=== PATIENT | female | born 1965 | race African-American/Black ===

== ENCOUNTER 2017-05-15 21:31 | Emergency (ER) | payer MEDICAID, OTHER ==
[~2017-05-15] VITALS: Ht 170.2 cm; Wt 65.0 kg
[~2017-05-15 21:31] MED LIST: ARIP15TA2 PO; ASPI-1159 PO; ATEN-42 PO; CARB200T PO; PHEN100C12 PO; PHEN60TA PO; SIMV40TA5 PO; TRAZ-129 PO
[2017-05-15] MEDS ORDERED: SODIUM CHLORIDE 0.9% 1,000 ML IV ONE (22:28)
[2017-05-15 23:33] LABS: EOSINOPHILS % 1.6 % (0.0-5.0); HEMATOCRIT. 34.7 % (36.0-48.0); HEMOGLOBIN. 11.3 g/dL (12.0-16.0); LYMPHOCYTES % 48.8 % (20.0-50.0); MEAN CORPUSCULAR HEMOGLOBIN 27.8 pg (28.0-32.0); MEAN CORPUSCULAR VOLUME 85.2 fL (81.0-99.0); MEAN PLATELET VOLUME 9.6 fl (7.4-10.4); MONOCYTES % 7.5 % (2.0-8.0); NEUTROPHILS % 41.1 % (40.0-76.0); PLATELET 249 x1000/uL (130-400); RED BLOOD CELL COUNT 4.08 mill/uL (4.2-5.4); RED CELL DISTRIBUTION WIDTH 14.9 % (11.6-14.6)
[2017-05-15 23:35] LABS: CHLORIDE 105 mEq/L (98-107)
[2017-05-15 23:39] LABS: PROTHROMBIN TIME 10.7 sec (9.4-11.6)
[2017-05-15 23:43] LABS: AMMONIA 50 uMol/L (<32)
[2017-05-15 23:44] LABS: CARBON DIOXIDE 26 mEq/L (21-32); ETHANOL BLOOD < 10 mg/dL
[2017-05-16] MEDS ORDERED: PHENYTOIN SODIUM 1,000 MG in SODIUM CHLORIDE 0.9% 100 ML IV ONE (01:45)
[2017-05-16] MEDS ORDERED: PHENYTOIN SODIUM 1,000 MG in SODIUM CHLORIDE 0.9% 250 ML IV SCH (03:00)
[2017-05-16 03:39] LABS: CLARITY URINE CLOUDY (CLEAR); COLOR URINE YELLOW (YELLOW); KETONES URINE TRACE (NEGATIVE); LEUKOCYTE ESTERASE URINE TRACE (NEGATIVE); NITRITE URINE NEGATIVE (NEGATIVE); OCCULT BLOOD URINE NEGATIVE (NEGATIVE); PROTEIN URINE 1+ (NEGATIVE); UROBILINOGEN URINE 0.2 E.U./dL (0.2-1.0)
[2017-05-16 04:03] LABS: *AMPHETAMINES SCREEN URINE NEGATIVE (NEGATIVE); *BARBITURATES SCREEN URINE PRESUMTIVE POSITIVE (NEGATIVE); *BENZODIAZEPINES SCREEN URINE NEGATIVE (NEGATIVE); *COCAINE SCREEN URINE NEGATIVE (NEGATIVE); CANNABINOID URINE SCREEN PRESUMTIVE POSITIVE (NEGATIVE); METHADONE URINE SCREEN NEGATIVE (NEGATIVE); OPIATES URINE SCREEN NEGATIVE (NEGATIVE); PHENCYCLIDINE URINE SCREEN NEGATIVE (NEGATIVE)
[2017-05-16 06:00] VITALS: BP 124/71
== END 2017-05-16 06:23 | disposition home or self-care (01) ==
LOC: ER 21:31
DX: R56.9 Unspecified convulsions (principal); R41.82 Altered mental status, unspecified; I10 Essential (primary) hypertension; Z79.82 Long term (current) use of aspirin; Z88.0 Allergy status to penicillin; Z91.013 Allergy to seafood; Z88.8 Allergy status to other drugs, medicaments and biological substances
CPT/HCPCS: 36415; 70450; 71045; 80053; 80185; 80305; 81001; 82140; 85025; 85610; 93005; 96361; 96365; 99285; G0482; J1165; Z7610; J7030; J7050

== ENCOUNTER 2017-07-15 19:08 | Emergency (ER) | payer MEDICAID, OTHER ==
[~2017-07-15] VITALS: Ht 172.7 cm; Wt 110.0 kg
[2017-07-15] MEDS ORDERED: ONDANSETRON HCL 4MG/2ML VIAL IV ONE (23:15)
[2017-07-15] MEDS ORDERED: SODIUM CHLORIDE 0.9% 1,000 ML IV ONE (23:15)
[2017-07-15] MEDS ORDERED: VALPROATE SODIUM 500 MG in DEXT 5% WATER 100 ML IV ONE (23:15)
[2017-07-15] MEDS ORDERED: PHENYTOIN SODIUM 500 MG in SODIUM CHLORIDE 0.9% 50 ML IV NR (23:30)
[2017-07-15 23:41] LABS: EOSINOPHILS % 1.8 % (0.0-5.0); HEMATOCRIT. 32.7 % (36.0-48.0); HEMOGLOBIN. 10.9 g/dL (12.0-16.0); LYMPHOCYTES % 49.5 % (20.0-50.0); MEAN CORPUSCULAR HEMOGLOBIN 28.9 pg (28.0-32.0); MEAN CORPUSCULAR VOLUME 86.6 fL (81.0-99.0); MEAN PLATELET VOLUME 8.7 fl (7.4-10.4); MONOCYTES % 7.5 % (2.0-8.0); NEUTROPHILS % 40.2 % (40.0-76.0); PLATELET 211 x1000/uL (130-400); RED BLOOD CELL COUNT 3.78 mill/uL (4.2-5.4); RED CELL DISTRIBUTION WIDTH 15.4 % (11.6-14.6)
[2017-07-15 23:45] LABS: CHLORIDE 107 mEq/L (98-107)
[2017-07-16 00:12] LABS: CLARITY URINE CLOUDY (CLEAR); COLOR URINE YELLOW (YELLOW); KETONES URINE TRACE (NEGATIVE); LEUKOCYTE ESTERASE URINE NEGATIVE (NEGATIVE); NITRITE URINE NEGATIVE (NEGATIVE); OCCULT BLOOD URINE TRACE (NEGATIVE); PROTEIN URINE 2+ (NEGATIVE); UROBILINOGEN URINE 0.2 E.U./dL (0.2-1.0)
[2017-07-16 00:16] VITALS: BP 119/77
== END 2017-07-16 01:13 | disposition home or self-care (01) ==
LOC: ER 19:08
DX: G40.909 Epilepsy, unspecified, not intractable, without status epilepticus (principal); E86.0 Dehydration; R11.2 Nausea with vomiting, unspecified; R09.89 Other specified symptoms and signs involving the circulatory and respiratory systems; D64.9 Anemia, unspecified; E78.5 Hyperlipidemia, unspecified; I10 Essential (primary) hypertension; N28.9 Disorder of kidney and ureter, unspecified; Z79.82 Long term (current) use of aspirin; Z88.0 Allergy status to penicillin; Z88.8 Allergy status to other drugs, medicaments and biological substances
CPT/HCPCS: 36415; 71045; 80048; 81003; 85025; 87086; 96365; 99285; J1165; J2405; J3490; J7030; Z7610; J7060

== ENCOUNTER 2017-07-24 08:50 | Day surgery (SDC) | payer MEDICAID ==
[~2017-07-24] VITALS: Ht 171.4 cm; Wt 139.3 kg
[~2017-07-24 08:50] MED LIST changes: +ARIP20TA2 PO; +DIVA500T51 PO; +INSLIS SUBCUT; +INSU100I28 SQ; +SITA50TA3 PO
[2017-07-24] MEDS ORDERED: INSULIN LISPRO 100 UNITS/ML SUBCUT SCH (10:00)
[2017-07-24] MEDS ORDERED: SODIUM CHLORIDE 0.9% 1,000 ML IV SCH (10:15)
[2017-07-24] MEDS ORDERED: LIDOCAINE HCL/PF 1% 10 MG/ML 5ML VIAL ONE (10:49)
[2017-07-24] MEDS ORDERED: NEOSTIGMINE METHYLSULFATE 1MG/ML 10 ML VIAL ONE (10:49)
[2017-07-24] MEDS ORDERED: MIDAZOLAM HCL 2 MG/2 ML VIAL ONE (10:49)
[2017-07-24] MEDS ORDERED: ROCURONIUM BROMIDE 10MG/ML VIAL 5ML IV ONE (10:49)
[2017-07-24] MEDS ORDERED: GLYCOPYRROLATE 0.2 MG/ML 2ML VIAL ONE (10:49)
[2017-07-24] MEDS ORDERED: PROPOFOL 200MG/20ML VIAL IV ONE ×2 (10:49→11:35)
[2017-07-24] MEDS ORDERED: SUCCINYLCHOLINE CHLORIDE 200MG/10ML VIAL IV ONE (10:49)
[2017-07-24] MEDS ORDERED: FENTANYL CITRATE/PF 50MCG/ML 2ML VIAL ONE (10:49)
[2017-07-24] MEDS ORDERED: METOCLOPRAMIDE HCL 10MG/2ML VIAL ONE (10:50)
[2017-07-24] MEDS ORDERED: ONDANSETRON HCL 4MG/2ML VIAL ONE (10:50)
[2017-07-24] MEDS ORDERED: ATOR-2 PO (10:53)
[2017-07-24] MEDS ORDERED: METF500T4 PO (10:53)
[2017-07-24] MEDS ORDERED: PREG50CA PO (10:53)
[2017-07-24] MEDS ORDERED: FLUT1DIS3 IH (10:53)
[2017-07-24] MEDS ORDERED: OMEP40CA34 PO (10:53)
[2017-07-24] MEDS ORDERED: DIPH25CA83 PO (10:56)
[2017-07-24] MEDS ORDERED: ALBU18HF2 IH (10:56)
[2017-07-24] MEDS ORDERED: INSULIN LISPRO 100 UNITS/ML SUBCUT NR (11:30)
== END 2017-07-24 13:40 | disposition home or self-care (01) ==
LOC: OR 08:50
PROVIDERS: ATTEND Internal Medicine Gastroenterology
DX: R10.30 Lower abdominal pain, unspecified (principal); K64.8 Other hemorrhoids; I10 Essential (primary) hypertension; G40.909 Epilepsy, unspecified, not intractable, without status epilepticus; F31.9 Bipolar disorder, unspecified; E78.5 Hyperlipidemia, unspecified; E11.9 Type 2 diabetes mellitus without complications; E66.01 Morbid (severe) obesity due to excess calories; K21.9 Gastro-esophageal reflux disease without esophagitis; I25.10 Atherosclerotic heart disease of native coronary artery without angina pectoris; J45.909 Unspecified asthma, uncomplicated; G47.33 Obstructive sleep apnea (adult) (pediatric); Z90.710 Acquired absence of both cervix and uterus; Z86.73 Personal history of transient ischemic attack (TIA), and cerebral infarction without residual deficits; Z79.84 Long term (current) use of oral hypoglycemic drugs; Z88.0 Allergy status to penicillin; Z91.013 Allergy to seafood; Z91.041 Radiographic dye allergy status; Z79.899 Other long term (current) drug therapy
CPT/HCPCS: 45378; 82962; 93005; C1893; J1815; J2250; J3010; J3490; J7030; J0330; J2405; J2704; J2710; J2765

== ENCOUNTER 2018-08-15 13:35 | Inpatient (IN) | payer MEDICAID ==
[~2018-08-15] VITALS: Ht 170.2 cm; Wt 131.5 kg
[~2018-08-15 13:35] MED LIST changes: +ALBU18HF2 IH; -ARIP15TA2 PO; +ATOR-2 PO; +DIPH25CA83 PO; +FLUT1DIS3 IH; +METF-414 PO; +OMEP40CA34 PO; +PREG50CA PO; -TRAZ-129 PO; +TRAZ-212 PO
[2018-08-15 14:49] LABS: BASOPHILS % 1.3 % (0.0-2.0); HEMATOCRIT. 28.8 % (36.0-48.0); HEMOGLOBIN. 9.4 g/dL (12.0-16.0); LYMPHOCYTES % 40.2 % (20.0-50.0); MEAN CORPUSCULAR HEMOGLOBIN 28.3 pg (28.0-32.0); MEAN CORPUSCULAR VOLUME 86.9 fL (81.0-99.0); MEAN PLATELET VOLUME 8.3 fl (7.4-10.4); MONOCYTES % 6.2 % (2.0-8.0); NEUTROPHILS % 51.3 % (40.0-76.0); PLATELET 362 x1000/uL (130-400); RED BLOOD CELL COUNT 3.32 mill/uL (4.2-5.4); RED CELL DISTRIBUTION WIDTH 15.6 % (11.6-14.6)
[2018-08-15 14:56] LABS: CHLORIDE 114 mEq/L (98-107)
[2018-08-15 15:00] LABS: ETHANOL BLOOD < 10 mg/dL
[2018-08-15 15:05] LABS: PHENOBARBITAL 6.9 ug/mL (15.0-40.0)
[2018-08-15] MEDS ORDERED: DEXTROSE 50% WATER 50ML SYRINGE IV ONE ×4 (15:10→19:43)
[2018-08-15] MEDS ORDERED: ASPIRIN 325MG EC TABLET PO ONE (15:15)
[2018-08-15] MEDS ORDERED: SODIUM BICARBONATE 8.4% 1 MEQ/ML 50ML SYR IV ONE (16:00)
[2018-08-15] MEDS ORDERED: PHENYTOIN SODIUM 1,000 MG in SODIUM CHLORIDE 0.9% 100 ML IV ONE (16:00)
[2018-08-15] MEDS ORDERED: VALPROIC ACID 250MG CAPSULE PO ONE (16:00)
[2018-08-15] MEDS ORDERED: PHENOBARBITAL 60MG TABLET PO ONE (16:00)
[2018-08-15] MEDS ORDERED: CARBAMAZEPINE 200MG TABLET PO ONE (16:00)
[2018-08-15 21:30] VITALS: BP 127/89
[2018-08-16] VITALS: BP 125/60
[2018-08-16 04:00] VITALS: BP 124/58
[2018-08-16 08:00] VITALS: BP 135/72
[2018-08-16] MEDS ORDERED: ONDANSETRON HCL 4MG/2ML INJ IV PRN (09:00)
[2018-08-16] MEDS ORDERED: MAGNESIUM/ALUMINUM HYDROXIDE/SIMETHICONE 30ML UDC PO PRN (09:00)
[2018-08-16] MEDS ORDERED: GUAIFENESIN 200MG/10ML SUGAR FREE UDC PO PRN (09:00)
[2018-08-16] MEDS ORDERED: DOCUSATE SODIUM 100MG CAPSULE PO PRN (09:00)
[2018-08-16 09:46] LABS: BASOPHILS % 0.8 % (0.0-2.0); EOSINOPHILS % 0.9 % (0.0-5.0); HEMATOCRIT. 30.7 % (36.0-48.0); MEAN CORPUSCULAR HEMOGLOBIN 28.1 pg (28.0-32.0); MEAN CORPUSCULAR VOLUME 86.6 fL (81.0-99.0); MEAN PLATELET VOLUME 8.1 fl (7.4-10.4); MONOCYTES % 7.5 % (2.0-8.0); NEUTROPHILS % 52.8 % (40.0-76.0); PLATELET 365 x1000/uL (130-400); RED BLOOD CELL COUNT 3.54 mill/uL (4.2-5.4); RED CELL DISTRIBUTION WIDTH 15.5 % (11.6-14.6)
[2018-08-16] MEDS: FUROSEMIDE 40MG/4ML VIAL IV SCH ×2 (10:09→17:55)
[2018-08-16 10:10] LABS: CHLORIDE 109 mEq/L (98-107)
[2018-08-16] MEDS: ENOXAPARIN 40MG/0.4ML SYR SUBCUT SCH (10:10)
[2018-08-16 10:17] LABS: LDL CHOLESTEROL 119 mg/dL (5-100)
[2018-08-16 10:19] LABS: HDL CHOLESTEROL 71 mg/dL (40-59)
[2018-08-16] MEDS ORDERED: LISI40TA4 MT (11:25)
[2018-08-16] MEDS ORDERED: PRIM50TA31 MT (11:25)
[2018-08-16] MEDS ORDERED: FLUT1DIS3 INH (11:25)
[2018-08-16 12:00] VITALS: BP 144/81
[2018-08-16] MEDS ORDERED: SODIUM POLYSTYRENE SULFONATE 15 G/60 ML BOT PO SCH (14:00)
[2018-08-16] MEDS: HYDROCODONE/ACETAMINOPHEN 5/325MG TABLET PO PRN (14:56)
[2018-08-16] MEDS: CARBAMAZEPINE 200MG TABLET PO SCH ×3 (15:39→22:48)
[2018-08-16 16:00] VITALS: BP 166/94
[2018-08-16] MEDS: LISINOPRIL 40MG TABLET PO SCH (18:24)
[2018-08-16] MEDS: ASPIRIN 81MG TABLET PO SCH (18:24)
[2018-08-16] MEDS: OMEPRAZOLE 20MG CAPSULE EXTENDED RELEASE PO SCH ×3 (18:25→21:01)
[2018-08-16 20:00] VITALS: BP 142/74
[2018-08-16] MEDS: ATORVASTATIN CALCIUM 40MG TABLET PO SCH (21:08)
[2018-08-16] MEDS: TRAZODONE HCL 50MG TABLET PO SCH (21:09)
[2018-08-16] MEDS: ACETAMINOPHEN 325MG TABLET PO PRN (21:13)
[2018-08-16] MEDS ORDERED: DEXTROSE 50% WATER 50ML SYRINGE IV PRN (23:45)
[2018-08-16] MEDS ORDERED: LORAZEPAM 2MG/ML CPJ IV PRN (23:45)
[2018-08-17] VITALS: BP 113/54
[2018-08-17] MEDS: HYDROCODONE/ACETAMINOPHEN 5/325MG TABLET PO PRN (00:15)
[2018-08-17] MEDS: IPRATROPIUM/ALBUTEROL 0.5-3(2.5)MG/3ML NEB HHN SCH ×4 (02:00→21:29)
[2018-08-17 04:00] VITALS: BP 158/94
[2018-08-17 05:08] LABS: *AMPHETAMINES SCREEN URINE NEGATIVE (NEGATIVE); *BARBITURATES SCREEN URINE PRESUMTIVE POSITIVE (NEGATIVE); *BENZODIAZEPINES SCREEN URINE NEGATIVE (NEGATIVE); *COCAINE SCREEN URINE NEGATIVE (NEGATIVE)
[2018-08-17 05:09] LABS: CANNABINOID URINE SCREEN PRESUMTIVE POSITIVE (NEGATIVE); METHADONE URINE SCREEN NEGATIVE (NEGATIVE); OPIATES URINE SCREEN PRESUMTIVE POSITIVE (NEGATIVE); PHENCYCLIDINE URINE SCREEN NEGATIVE (NEGATIVE)
[2018-08-17 06:36] LABS: CHLORIDE 108 mEq/L (98-107)
[2018-08-17] MEDS: OMEPRAZOLE 20MG CAPSULE EXTENDED RELEASE PO SCH (06:42)
[2018-08-17] MEDS: CARBAMAZEPINE 200MG TABLET PO SCH ×3 (06:43→21:44)
[2018-08-17] MEDS: BLOOD SUGAR DIAGNOSTIC STRIP TEST SCH ×4 (06:54→21:44)
[2018-08-17] MEDS: INSULIN LISPRO 100 UNITS/ML SUBCUT SCH ×4 (06:59→21:45)
[2018-08-17 08:10] LABS: BASOPHILS % 0.8 % (0.0-2.0); EOSINOPHILS % 1.6 % (0.0-5.0); HEMATOCRIT. 29.8 % (36.0-48.0); HEMOGLOBIN. 9.8 g/dL (12.0-16.0); LYMPHOCYTES % 47.1 % (20.0-50.0); MEAN CORPUSCULAR HEMOGLOBIN 28.3 pg (28.0-32.0); MEAN CORPUSCULAR VOLUME 86.3 fL (81.0-99.0); MEAN PLATELET VOLUME 7.8 fl (7.4-10.4); MONOCYTES % 9.4 % (2.0-8.0); NEUTROPHILS % 41.1 % (40.0-76.0); PLATELET 362 x1000/uL (130-400); RED BLOOD CELL COUNT 3.46 mill/uL (4.2-5.4); RED CELL DISTRIBUTION WIDTH 15.6 % (11.6-14.6)
[2018-08-17 08:18] VITALS: BP 140/56
[2018-08-17] MEDS: ENOXAPARIN 40MG/0.4ML SYR SUBCUT SCH (09:05)
[2018-08-17] MEDS: LISINOPRIL 40MG TABLET PO SCH (09:06)
[2018-08-17] MEDS: ASPIRIN 81MG TABLET PO SCH (09:07)
[2018-08-17] MEDS: FUROSEMIDE 40MG/4ML VIAL IV SCH ×2 (09:07→18:08)
[2018-08-17 11:58] VITALS: BP 114/63
[2018-08-17 16:00] VITALS: BP 125/61
[2018-08-17] MEDS: ACETAMINOPHEN 325MG TABLET PO PRN (18:09)
[2018-08-17 20:00] VITALS: BP 170/88
[2018-08-17] MEDS: TRAZODONE HCL 50MG TABLET PO SCH (21:43)
[2018-08-17] MEDS: FAMOTIDINE 20MG TABLET PO SCH (21:43)
[2018-08-17] MEDS: ATORVASTATIN CALCIUM 40MG TABLET PO SCH (21:44)
[2018-08-17] MEDS: INSULIN GLARGINE UD 100 UNITS/ML SYR SUBCUT SCH (21:47)
[2018-08-18] VITALS: BP 139/64
[2018-08-18] MEDS: ACETAMINOPHEN 325MG TABLET PO PRN ×2 (00:33→08:43)
[2018-08-18] MEDS: IPRATROPIUM/ALBUTEROL 0.5-3(2.5)MG/3ML NEB HHN SCH (01:51)
[2018-08-18] MEDS: HYDROCODONE/ACETAMINOPHEN 5/325MG TABLET PO PRN ×2 (02:44→12:45)
[2018-08-18] MEDS: CARBAMAZEPINE 200MG TABLET PO SCH (06:14)
[2018-08-18] MEDS: BLOOD SUGAR DIAGNOSTIC STRIP TEST SCH ×2 (06:18→12:32)
[2018-08-18] MEDS: INSULIN LISPRO 100 UNITS/ML SUBCUT SCH ×2 (06:18→12:43)
[2018-08-18 07:14] LABS: BASOPHILS % 0.5 % (0.0-2.0); CHLORIDE 104 mEq/L (98-107); EOSINOPHILS % 0.9 % (0.0-5.0); HEMOGLOBIN. 9.8 g/dL (12.0-16.0); LYMPHOCYTES % 40.8 % (20.0-50.0); MEAN CORPUSCULAR HEMOGLOBIN 28.1 pg (28.0-32.0); MEAN CORPUSCULAR VOLUME 86.1 fL (81.0-99.0); MEAN PLATELET VOLUME 7.9 fl (7.4-10.4); MONOCYTES % 9.9 % (2.0-8.0); NEUTROPHILS % 47.9 % (40.0-76.0); PLATELET 356 x1000/uL (130-400); RED BLOOD CELL COUNT 3.48 mill/uL (4.2-5.4); RED CELL DISTRIBUTION WIDTH 15.4 % (11.6-14.6)
[2018-08-18 08:00] VITALS: BP 183/79
[2018-08-18] MEDS: FAMOTIDINE 20MG TABLET PO SCH (08:39)
[2018-08-18] MEDS: LISINOPRIL 40MG TABLET PO SCH (08:40)
[2018-08-18] MEDS: ENOXAPARIN 40MG/0.4ML SYR SUBCUT SCH (08:40)
[2018-08-18] MEDS: ASPIRIN 81MG TABLET PO SCH (08:40)
[2018-08-18] MEDS: FUROSEMIDE 40MG/4ML VIAL IV SCH (08:40)
[2018-08-18] MEDS ORDERED: TRIHEXYPHENIDYL HCL 2 MG TABLET PO SCH (09:00)
[2018-08-18] MEDS: INSULIN GLARGINE UD 100 UNITS/ML SYR SUBCUT SCH (09:42)
[2018-08-18 12:00] VITALS: BP 142/89
[2018-08-18 13:33] VITALS: BP 142/89
[2018-08-18 16:28] VITALS: BP 119/64
== END 2018-08-18 17:30 | disposition home or self-care (01) | DRG 58 ==
LOC: ER 13:35 → 8WST 16:03 → EDBEDREQ 16:07 → ENRESERV 19:59
PROVIDERS: ADMIT Internal Medicine; ATTEND Internal Medicine
DX: G24.01 Drug induced subacute dyskinesia (principal); E11.649 Type 2 diabetes mellitus with hypoglycemia without coma; E66.01 Morbid (severe) obesity due to excess calories; I10 Essential (primary) hypertension; F20.9 Schizophrenia, unspecified; F79 Unspecified intellectual disabilities; F80.81 Childhood onset fluency disorder; R29.810 Facial weakness; E87.5 Hyperkalemia; F32.9 Major depressive disorder, single episode, unspecified; I69.354 Hemiplegia and hemiparesis following cerebral infarction affecting left non-dominant side; Z68.42 Body mass index [BMI] 45.0-49.9, adult; Z91.041 Radiographic dye allergy status; Z88.0 Allergy status to penicillin; Z91.018 Allergy to other foods; Z79.82 Long term (current) use of aspirin; Z79.84 Long term (current) use of oral hypoglycemic drugs; Z79.4 Long term (current) use of insulin; Z79.899 Other long term (current) drug therapy
CPT/HCPCS: 36415; 70551; 71045; 80048; 80061; 80156; 80165; 80184; 80185; 80305; 80320; 82962; 83036; 84132; 84443; 84484; 92523; 93005; 93970; 96374; 96375; 97162; 97165; 99285; C1893; J1165; J1650; J1815; J1940; J3490; J7050; J7620; G0480

== ENCOUNTER 2018-12-04 21:46 | Emergency (ER) | payer MEDICAID ==
[~2018-12-04] VITALS: Ht 170.2 cm; Wt 95.0 kg
[~2018-12-04 21:46] MED LIST changes: -ARIP20TA2 PO; -ASPI-1159 PO; +ASPI-1393 PO; -ATEN-42 PO; -ATOR-2 PO; -DIPH25CA83 PO; +FLUT1DIS3 INH; -INSLIS SUBCUT; -INSU100I28 SQ; +LISI40TA4 MT; -METF-414 PO; -PHEN100C12 PO; -PHEN60TA PO; +PRIM50TA31 MT; -SITA50TA3 PO; -TRAZ-212 PO; +TRAZ-251 PO
[2018-12-04 21:51] VITALS: BP 151/82
== END 2018-12-05 02:15 | disposition left against medical advice (07) ==
LOC: ER 21:46
DX: R56.9 Unspecified convulsions (principal); Z53.21 Procedure and treatment not carried out due to patient leaving prior to being seen by health care provider